=== PATIENT | female | born 1965 | race Caucasian/White ===

== ENCOUNTER 2017-11-21 13:42 | Emergency (ER) | payer BC ==
[2017-11-21 14:02] VITALS: BP 143/69; PULSE 108; RESP 16; TEMP 97.7
[2017-11-21] MEDS ORDERED: ONDANSETRON 4 MG/2 ML VIAL IVP STA (14:17)
[2017-11-21] MEDS ORDERED: SODIUM CHLORIDE 0.9% 1,000 ML IV STA (14:17)
[2017-11-21] MEDS ORDERED: DIAZEPAM 5 MG/ML 2 ML INJ IVP STA (14:17)
--- NOTE | 2017-11-21 14:22 | ED ---
General Adult HPI - General Chief complaint: Dizziness Stated complaint: Vomiting Time Seen by Provider: 11/21/17 14:04 Source: patient, family, RN notes reviewed Mode of arrival: wheelchair Limitations: no limitations - History of Present Illness Initial comments: Chief complaint and history of present illness this is a 52-year-old female here with her . The patient was diagnosed with vertigo several days ago. She reports that at 10 the morning she was fine by 11:30 AM she was dizzy nausea and vomiting. She did follow-up with her medical provider. She was placed on meclizine which worked well for the first day. But she again started becoming dizzy this morning. Patient misunderstood the instructions she thought she only was to take it if she needed it and wasn't to be taken routinely as directed. - Related Data Home Medications Medication Instructions Recorded Confirmed INSULIN LISPRO (humaLOG) [humaLOG] See Protocol SQ ACHS 11/21/17 11/21/17 Insulin Degludec [Tresiba 15 unit SQ DAILY 11/21/17 11/21/17 Flextouch U-100] Venlafaxine HCl ER [Effexor Xr] 37.5 mg PO DAILY 11/21/17 11/21/17 Venlafaxine HCl [Effexor XR] 150 mg PO DAILY 11/21/17 11/21/17 Previous Rx's Medication Instructions Recorded Ondansetron Odt [Zofran Odt] 4 mg PO Q8HR PRN #10 tab 11/21/17 Allergies Allergy/AdvReac Type Severity Reaction Status Date / Time No Known Allergies Allergy Verified 11/21/17 14:42 Review of Systems ROS Statement: Those systems with pertinent positive or pertinent negative responses have been documented in the HPI. Review of systems. Patient is dizzy with head movement. Nausea and vomiting sometimes. No chest pain shortness breath GI/ problems no neuro deficits other than dizziness associated with movement. This been ongoing for 48 hours. All systems are reviewed. Past medical problems significant for depression. Insulin-dependent diabetes mellitus. Patient's had a recent runny nose. Her surgeries include 2 C-sections, tonsillectomy and bilateral carpal tunnel surgery. Patient's also had uterine ablation. Family history mother had TIAs. Patient denies any ALLERGIES he quit smoking 25 years ago denies alcohol use. Denies any injuries. ROS Other: All systems not noted in ROS Statement are negative. Past Medical History Past Medical History: Diabetes Mellitus History of Any Multi-Drug Resistant Organisms: None Reported Past Surgical History: Section Past Psychological History: No Psychological Hx Reported Smoking Status: Never smoker Past Alcohol Use History: None Reported Past Drug Use History: None Reported General Exam - General Exam Comments Initial Comments: General: The patient is awake and alert, presents with dizziness with head movement. Ongoing for 2 days. Vital signs shows temperature 97.7 pulse 108 respiratory rate 16 pulse ox on percent room air blood pressure 143/69 Eye: Pupils are equal, round and reactive to light, extra-ocular movements are intact ; there is normal conjunctiva bilaterally. No signs of icterus. Ears, nose, mouth and throat: There are moist mucous membranes and no oral lesions. Neck: The neck is supple, there is no tenderness, no anterior cervical lymphadenopathy , thyroid not enlarged. Cardiovascular: Cardiac heart rate, 108.. No murmur, rub or gallop is appreciated. Respiratory: Lungs are clear to auscultation, respirations are non-labored, breath sounds are equal. No wheezes, stridor, rales, or rhonchi. Gastrointestinal: Soft, non-distended, non-tender abdomen without masses or organomegaly noted. There is no rebound or guarding present. No CVA tenderness. Bowel sounds are unremarkable. Back: There is no tenderness to palpation in the midline. There is no obvious deformity. No rashes noted. Musculoskeletal: Normal ROM, no tenderness, There is no pedal edema. There is no calf tenderness or swelling. Sensation intact. Pulses equal bilaterally 2+. Neurological: CN II-XII intact, There are no obvious motor or sensory deficits. Coordination appears grossly intact. Speech is normal. No focal or lateralizing findings. The patient is dizzy with head movement. Nauseated and home vomited at home. Skin: Skin is warm and dry and no rashes or lesions are noted. Psychiatric: Cooperative, history of depression but no complaint of depression at this time. Limitations: no limitations Course Vital Signs 11/21/17 13:59 Temperature 97.7 F Pulse Rate 108 H Respiratory 16 Rate Blood Pressure 143/69 O2 Sat by Pulse 100 Oximetry Medical Decision Making - Medical Decision Making Medical decision making; is a 52-year-old female presents with a benign additional vertigo. Movement of her head increases nausea and vomiting and dizziness. This been ongoing for 2 days. Labs show white count of 5.4 hemoglobin 13 hematocrit of 40. Potassium 4.1 BUN 11 creatinine 0.5 GFR greater than 60. And glucose 124. Patient received a liter of fluid, Ativan and Zofran IV. Patient rested feels much better now. Less dizzy with head movement. The patient be advised to take her meclizine 3 times daily. She'll also be given a prescription for Zofran to be taken as needed for nausea and vomiting. Advised to rest relax rehydrate and follow with family physician as needed return emergency room as needed - Lab Data Result diagrams: 11/21/17 14:48 11/21/17 14:48 Lab Results 11/21/17 11/21/17 Range/Units 14:48 14:48 WBC 5.4 (3.8-10.6) k/uL RBC 4.33 (3.80-5.40) m/uL Hgb 13.7 (11.4-16.0) gm/dL Hct 40.1 (34.0-46.0) % MCV 92.6 (80.0-100.0) fL MCH 31.7 (25.0-35.0) pg MCHC 34.2 (31.0-37.0) g/dL RDW 12.3 (11.5-15.5) % Plt Count 413 (150-450) k/uL Neutrophils % 70 % Lymphocytes % 23 % Monocytes % 5 % Eosinophils % 0 % Basophils % 0 % Neutrophils # 3.8 (1.3-7.7) k/uL Lymphocytes # 1.2 (1.0-4.8) k/uL Monocytes # 0.3 (0-1.0) k/uL Eosinophils # 0.0 (0-0.7) k/uL Basophils # 0.0 (0-0.2) k/uL Sodium 143 (137-145) mmol/L Potassium 4.1 (3.5-5.1) mmol/L Chloride 106 (98-107) mmol/L Carbon Dioxide 27 (22-30) mmol/L Anion Gap 10 mmol/L BUN 11 (7-17) mg/dL Creatinine 0.50 L (0.52-1.04) mg/dL Est GFR (MDRD) Af Amer >60 (>60 ml/min/1.73 sqM) Est GFR (MDRD) Non-Af >60 (>60 ml/min/1.73 sqM) Glucose 124 H (74-99) mg/dL Calcium 9.5 (8.4-10.2) mg/dL Disposition Clinical Impression: Benign positional vertigo Disposition: HOME SELF-CARE Condition: Stable Instructions: Dizziness (ED), Benign Paroxysmal Positional Vertigo (ED) Additional Instructions: Take meclizine as directed. Follow-up with family physician return emergency room as needed he is Zofran for vomiting Prescriptions: Ondansetron Odt [Zofran Odt] 4 mg PO Q8HR PRN #10 tab PRN Reason: Nausea Referrals: Erika Seo DO [Primary Care Provider] - 1-2 days Time of Disposition: 15:39
[2017-11-21 15:13] LABS: Basophils % (A) 0 %; Eosinophils % (A) 0 %; HCT 40.1 % (34.0-46.0); HGB 13.7 gm/dL (11.4-16.0); Lymphocytes # (A) 1.2 k/uL (1.0-4.8); Lymphocytes % (A) 23 %; MCH 31.7 pg (25.0-35.0); MCHC 34.2 g/dL (31.0-37.0); MCV 92.6 fL (80.0-100.0); Monocytes # (A) 0.3 k/uL (0-1.0); Monocytes % (A) 5 %; Neutrophils # (A) 3.8 k/uL (1.3-7.7); Neutrophils % (A) 70 %; Platelet Count 413 k/uL (150-450); RBC 4.33 m/uL (3.80-5.40); RDW 12.3 % (11.5-15.5); WBC 5.4 k/uL (3.8-10.6)
[2017-11-21 15:15] LABS: Anion Gap 10 mmol/L; Blood Urea Nitrogen 11 mg/dL (7-17); Calcium 9.5 mg/dL (8.4-10.2); Carbon Dioxide 27 mmol/L (22-30); Chloride 106 mmol/L (98-107); Glucose 124 mg/dL (74-99); Potassium 4.1 mmol/L (3.5-5.1); Sodium 143 mmol/L (137-145)
== END 2017-11-21 16:41 | disposition home or self-care (01) ==
LOC: EC 13:42
DX: H81.10 Benign paroxysmal vertigo, unspecified ear (principal); F32.9 Major depressive disorder, single episode, unspecified; E11.9 Type 2 diabetes mellitus without complications; Z82.3 Family history of stroke; Z87.891 Personal history of nicotine dependence; Z79.4 Long term (current) use of insulin; Z79.899 Other long term (current) drug therapy
CPT/HCPCS: 36415; 80048; 85025; 99284; 96374; 96375; 96361 ×2; J3360; J2405

== ENCOUNTER → 2018-03-01 | Outpatient (CLI) | payer BC ==
--- NOTE | 2018-03-01 09:40 | BD ---
EXAMINATION TYPE: MG DEXA axial skeleton. DATE OF EXAM: 03/01/2018 COMPARISON: NONE CLINICAL HISTORY: screening. Postmenopausal female. Height: 5'1 Weight: 135 FRAX RISK QUESTIONS: Alcohol (3 or more units per day): no Family History (Parent hip fracture): no Glucocorticoids (More than 3mos): no (Ex: prednisone, prednisolone, methylprednisolone, dexamethasone, and hydrocortisone). History of Fracture in Adulthood: no Secondary Osteoporosis: 1. Type 1 Diabetes: yes 2. Hyperthyroidism: no 3. Menopause before 45: no 4. Malnutrition: no 5. Chronic liver disease: no Rheumatoid Arthritis: no Current Tobacco Use: no RISK FACTORS HISTORY OF: Postmenopausal woman: MEDICATIONS: Additional Medications: depression, insulin Additional History: EXAM MEASUREMENTS: Bone mineral densitometry was performed using the [employer] System. Bone mineral density as measured about the Lumbar spine is: ----- L1-L4(G/cm2): 1.063 T Score Values are as follows: ----- L2: -1.0 ----- L3: -0.8 ----- L4: -1.0 ----- L1-L4: -1.0 Bone mineral density about the R hip (g/cm2): 0.910 Bone mineral density about the L hip (g/cm2): 0.912 T Score values are as follows: -----R Neck: -0.9 -----L Neck: -0.9 -----R Total: -0.6 -----L Total: -0.6 IMPRESSION: Normal (Values between +1 and -1 indicate normal bone mass). Consider repeating this study in 5 year s or sooner if there is some new clinical indication. NOTE: T-SCORE=SD OF THE YOUNG ADULT MEAN.
--- NOTE | 2018-03-03 11:07 | MM ---
Reason for exam: screening (asymptomatic). Last mammogram was performed 2 years and 8 months ago. Physical Findings: A clinical breast exam by your physician is recommended on an annual basis and results should be correlated with mammographic findings. MG Screening Mammo w CAD Bilateral CC and MLO view(s) were taken. Prior study comparison: June 24, 2015, bilateral MG screening mammo w CAD. May 28, 2014, bilateral MG screening mammo w CAD. The breast tissue is heterogeneously dense. This may lower the sensitivity of mammography. No significant changes when compared with prior studies. ASSESSMENT: Negative, BI-RAD 1 RECOMMENDATION: Routine screening mammogram of both breasts in 1 year.
== END | disposition home or self-care (01) ==
LOC: RADMAMWWP 08:42
PROVIDERS: ATTEND Family Medicine
DX: Z12.31 Encounter for screening mammogram for malignant neoplasm of breast (principal); Z13.820 Encounter for screening for osteoporosis
CPT/HCPCS: 77067; 77080

== ENCOUNTER → 2018-03-03 | Outpatient (CLI) | payer BC ==
--- NOTE | 2018-03-03 11:49 | ECHOF ---
Referral Reason:R01.1 Cardiac murmur MEASUREMENTS -------- HEIGHT: 154.9 cm WEIGHT: 60.3 kg BP: 137/64 RVIDd: 2.4 cm (< 3.3) IVSd: 1.0 cm (0.6 - 1.1) LVIDd: 3.8 cm (3.9 - 5.3) LVPWd: 1.1 cm (0.6 - 1.1) IVSs: 1.3 cm LVIDs: 2.5 cm LVPWs: 1.3 cm LAESV Index (A-L): 19.89 ml/m Ao Diam: 2.4 cm (2.0 - 3.7) AV Cusp: 1.3 cm (1.5 - 2.6) LA Diam: 2.7 cm (2.7 - 3.8) EPSS: 0.4 cm MV E Bear: 0.83 m/s MV DecT: 200 ms MV A Bear: 0.93 m/s MV E/A Ratio: 0.89 RAP: 5.00 mmHg RVSP: 18.27 mmHg MV EF SLOPE: 85.88 mm/s (70 - 150) MV EXCURSION: 1.29 cm (> 18.000) FINDINGS -------- Sinus rhythm. This was a technically good study. The left ventricular size is normal. Left ventricular wall thickness is normal. Overall left vent ricular systolic function is normal with, an EF between 55 - 60 %. The right ventricle is normal in size and function. Normal LA size by volume 22+/-6 ml/m2. The right atrium is normal in size. Aortic valve is trileaflet and is mildly thickened. There is no evidence of aortic regurgitation. There is no evidence of aortic stenosis. The mitral valve leaflets are mildly thickened. There is trace mitral regurgitation. Trace tricuspid regurgitation present. Right ventricular systolic pressure is normal at < 35 mmHg. There is no evidence of pulmonary hypertension. The pulmonic valve is normal. The aortic root size is normal. Normal inferior vena cava with normal inspiratory collapse consistent with estimated right atrial pre ssure of 5 mmHg. There is no pericardial effusion. CONCLUSIONS -------- 1. Sinus rhythm. 2. This was a technically good study. 3. The left ventricular size is normal. 4. Left ventricular wall thickness is normal. 5. Overall left ventricular systolic function is normal with, an EF between 55 - 60 %. 6. Normal LA size by volume 22+/-6 ml/m2. 7. Aortic valve is trileaflet and is mildly thickened. 8. The mitral valve leaflets are mildly thickened. 9. There is trace mitral regurgitation. 10. Trace tricuspid regurgitation present. 11. Right ventricular systolic pressure is normal at < 35 mmHg. 12. There is no evidence of pulmonary hypertension. 13. The aortic root size is normal. 14. There is no pericardial effusion. ASSEMBLER CRIMPER: Luis A Barber RDCS
== END | disposition home or self-care (01) ==
LOC: RADECHMAIN 11:00
PROVIDERS: ATTEND Family Medicine
DX: I08.1 Rheumatic disorders of both mitral and tricuspid valves (principal)
CPT/HCPCS: 93306

== ENCOUNTER → 2020-04-12 | Outpatient (CLI) | payer BC ==
--- NOTE | 2020-04-16 11:31 | MM ---
Reason for exam: screening (asymptomatic). Last mammogram was performed 2 years and 1 month ago. History: Patient is postmenopausal. Physical Findings: A clinical breast exam by your physician is recommended on an annual basis and results should be correlated with mammographic findings. MG Screening Mammo w CAD Bilateral CC and MLO view(s) were taken. Prior study comparison: March 01, 2018, bilateral MG screening mammo w CAD. June 24, 2015, bilateral MG screening mammo w CAD. The breast tissue is heterogeneously dense. This may lower the sensitivity of mammography. There is no discrete abnormality. ASSESSMENT: Negative, BI-RAD 1 RECOMMENDATION: Routine screening mammogram of both breasts in 1 year.
== END | disposition home or self-care (01) ==
LOC: RADMAMWWP 09:41
PROVIDERS: ATTEND Family Medicine
DX: Z12.31 Encounter for screening mammogram for malignant neoplasm of breast (principal)
CPT/HCPCS: 77067

== ENCOUNTER → 2021-02-06 | Outpatient (CLI) | payer BC ==
[2021-02-06 20:02] LABS: T4, Free (Free Thyroxine) 0.9 ng/dL (0.80-1.80)
== END | disposition home or self-care (01) ==
LOC: LABWHC1 09:08
PROVIDERS: ATTEND Internal Medicine Endocrinology, Diabetes & Metabolism
DX: E10.65 Type 1 diabetes mellitus with hyperglycemia (principal)
CPT/HCPCS: 36415; 82024; 82533; 82607; 84439; 84443

== ENCOUNTER → 2021-07-30 | Outpatient (CLI) | payer BC ==
--- NOTE | 2021-08-04 10:21 | MM ---
Reason for exam: screening (asymptomatic). Last mammogram was performed 1 year and 4 months ago. History: Patient is postmenopausal. Physical Findings: A clinical breast exam by your physician is recommended on an annual basis and results should be correlated with mammographic findings. MG Screening Mammo w CAD Bilateral CC and MLO view(s) were taken. Prior study comparison: April 12, 2020, bilateral MG screening mammo w CAD. March 01, 2018, bilateral MG screening mammo w CAD. June 24, 2015, bilateral MG screening mammo w CAD. The breast tissue is heterogeneously dense. This may lower the sensitivity of mammography. No significant changes when compared with prior studies. ASSESSMENT: Negative, BI-RAD 1 RECOMMENDATION: Routine screening mammogram of both breasts in 1 year.
== END | disposition home or self-care (01) ==
LOC: RADMAMWWP 16:25
PROVIDERS: ATTEND Family Medicine
DX: Z12.31 Encounter for screening mammogram for malignant neoplasm of breast (principal); Z78.0 Asymptomatic menopausal state
CPT/HCPCS: 77067

== ENCOUNTER → 2023-01-25 | Outpatient (CLI) | payer BC ==
--- NOTE | 2023-01-26 06:09 | MM ---
Reason for Exam: Screening (asymptomatic). Last mammogram was performed 1 year(s) and 6 month(s) ago. Patient History: Menarche at age 13. First Full-Term at age 21. Postmenopausal. Risk Values: Court 5 year model risk: 1.1%. NCI Lifetime model risk: 7.1%. Prior Study Comparison: 03/01/2018 Bilateral Screening Mammogram, [facility]. 04/12/2020 Bilateral Screening Mammogram, [facility]. 07/30/2021 Bilateral Screening Mammogram, [facility]. Tissue Density: The breast tissue is heterogeneously dense. This may lower the sensitivity of mammography. Analyzed By CAD. Overall Assessment: Negative, BI-RAD 1 Management: Screening Mammogram of both breasts in 1 year. Electronically signed and approved by: Darryl Tam M.D.
== END | disposition home or self-care (01) ==
LOC: RADMAMWWP 15:40
PROVIDERS: ATTEND Family Medicine
DX: Z12.31 Encounter for screening mammogram for malignant neoplasm of breast (principal)
CPT/HCPCS: 77067

== ENCOUNTER → 2023-11-16 | Outpatient (CLI) | payer BC ==
--- NOTE | 2023-11-16 14:39 | US ---
EXAMINATION TYPE: US pelvis complete transvag DATE OF EXAM: 11/16/2023 COMPARISON: NONE CLINICAL INDICATION: Female, 58 years old with history of N95.0 postmenopausal BLEEDING; TECHNIQUE: . Transabdominal sonographic images of the pelvis were acquired. Transvaginal sonographi c images were medically necessary to better assess the following anatomy: uterus and ovaries Date of LMP: 20 years ago EXAM MEASUREMENTS: Uterus: 5.3 x 2.6 x 3.2 cm Endometrial Stripe: 0.3 cm Right Ovary: not seen Left Ovary: not seen 1. Uterus: anteverted, heterogeneous with calcifications 2. Endometrium: visualized portion appears wnl 3. Right Ovary: not seen due to overlying bowel gas/patient's anatomy. 4. Left Ovary: not seen due to overlying bowel gas 5. Bilateral Adnexa: wnl 6. Posterior cul-de-sac: wnl IMPRESSION: 1. Endometrium within normal limits for thickness. Consider direct visualization to evaluate for the source of bleeding. 2. Fibroid changes with calcification involving the right uterine parenchyma.
== END | disposition home or self-care (01) ==
LOC: RADUSWWP 13:32
PROVIDERS: ATTEND Family Medicine
DX: D25.9 Leiomyoma of uterus, unspecified (principal); N85.8 Other specified noninflammatory disorders of uterus; N95.0 Postmenopausal bleeding
CPT/HCPCS: 76830; 76856

== ENCOUNTER → 2024-01-31 | Outpatient (CLI) | payer BC ==
--- NOTE | 2024-02-01 09:03 | MM ---
Reason for Exam: Screening (asymptomatic). Last mammogram was performed 1 year(s) and 1 month(s) ago. Patient History: Menarche at age 13. First Full-Term at age 21. Postmenopausal. Risk Values: Court 5 year model risk: 1.2%. NCI Lifetime model risk: 6.9%. Prior Study Comparison: 06/24/2015 Bilateral Screening Mammogram, [facility]. 03/01/2018 Bilateral Screening Mammogram, [facility]. 04/12/2020 Bilateral Screening Mammogram, [facility]. 07/30/2021 Bilateral Screening Mammogram, [facility]. 01/25/2023 Bilateral MG screening mammo w CAD, [facility]. Tissue Density: The breasts are heterogeneously dense, which may obscure small masses. Findings: Analyzed By CAD. There is no suspicious group of microcalcifications or new suspicious mass in either breast. Overall Assessment: Benign, BI-RAD 2 Management: Screening Mammogram of both breasts in 1 year. . Patient should continue monthly self-breast exams. A clinical breast exam by your physician is recommended on an annual basis. This exam should not preclude additional follow-up of suspicious palpable abnormalities. Note on Court scores and lifetime risk: 1. A Court score greater than 3% is considered moderate risk. If this is the case, consider specialist referral to assess eligibility for a risk reducing agent. 2. If overall lifetime risk for the development of breast cancer is 20% or higher, the patient may qualify for future screening with alternating mammogram and breast MRI. Electronically signed and approved by: Enzo Sanderson M.D. Radiologis
--- NOTE | 2024-02-02 17:55 | BD ---
EXAMINATION TYPE: Axial Bone Density DATE OF EXAM: 01/31/2024 CLINICAL HISTORY: 59 years old Female. ICD-10 CODE: Z78.0 ASYMPTOMATIC MENOPAUSAL STATE Height: 61 Weight: 137.1 FRAX RISK QUESTIONS: Alcohol (3 or more units per day): no Family History (Parent hip fracture): no Glucocorticoids (More than 3mos): no History of Fracture in Adulthood: no Secondary Osteoporosis: 1. Type 1 Diabetes: yes 2. Hyperthyroidism: no 3. Menopause before 45: yes 4. Malnutrition: no 5. Chronic liver disease: no Rheumatoid Arthritis: no Current Tobacco Use: no RISK FACTORS HISTORY OF: Hip Fracture (Right/Left): no Spine Fracture: no History of Wrist Fracture: Rt wrist age 6 Surgery to Spine/Hip(right/left)/Wrist (right/left): no MEDICATIONS: Thyroid Medications: no Osteoporosis Medications: no EXAM MEASUREMENTS: Bone mineral densitometry was performed using the [employer] System. Bone mineral density as measured about the Lumbar spine is: ----- L1-L4(G/cm2): 0.997 T Score Values are as follows: ----- L1: -1.6 ----- L2: -1.6 ----- L3: -1.6 ----- L4: -1.4 ----- L1-L4: -1.5 Z Score Values are as follows: ----- L1: -0.5 ----- L2: -0.5 ----- L3: -0.5 ----- L4: -0.3 ----- L1-L4: -0.4 Bone mineral density has: decreased -6.2 % since study of: 03/18/2021 Bone mineral density about the R hip (g/cm2): 0.923 Bone mineral density about the L hip (g/cm2): 0.896 T Score values are as follows: -----R Neck: -1.1 -----L Neck: -1.3 -----R Total: -0.7 -----L Total: -0.9 Z Score values are as follows: -----R Neck: 0.1 -----L Neck: -0.1 -----R Total: 0.2 -----L Total: 0.0 Bone mineral density has: decreased -2.6 % since study of: FRAX%s: The graph provided illustrates a 7.0% chance for a major osteoporotic fx and a 0.5% chance fo r the hips probability for fx in 10 years time. IMPRESSION: Osteopenia (T Score between -2.5 and -1). There is slightly increased risk of fracture and the patient may be considered for treatment. Re-Screen 2-5 years. NOTE: T-SCORE=SD OF THE YOUNG ADULT MEAN.
== END | disposition home or self-care (01) ==
LOC: RADMAMWWP 12:20
PROVIDERS: ATTEND Family Medicine
DX: Z12.31 Encounter for screening mammogram for malignant neoplasm of breast (principal); M85.89 Other specified disorders of bone density and structure, multiple sites; Z78.0 Asymptomatic menopausal state
CPT/HCPCS: 77067; 77080